=== PATIENT | male | born 1975 | race Caucasian/White ===

== ENCOUNTER → 2019-04-25 | Outpatient (CLI) | payer OTHER, SELFPAY ==
[2019-04-25 14:09] LABS: Hematocrit 46.2 % (40-54); Hemoglobin 16.1 g/dL (13.0-16.5); Mean Corp Hgb Conc 34.8 g/dL (32-36); Mean Corpuscular Hgb 32.8 pg (27.0-32.0); Mean Corpuscular Volume 94.1 fL (80-94); Mean Platelet Vol. 9.3 fl (6.2-12.0); Platelet Count 233 K/mm3 (150-450); RBC Distribution Width CV 11.5 % (11.6-14.6); RBC Distribution Width SD 40.1 fl (35.1-43.9); Red Blood Count 4.91 M/mm3 (4.6-6.2); White Blood Count 6.1 K/mm3 (4.4-11.0)
[2019-04-25 14:27] LABS: T4 Total, Thyroxin 11.3 ug/dL (4.5-12.1); Thyroid Stim Hormone (TSH) 2.57 uIU/mL (0.358-3.74)
== END | disposition home or self-care (01) ==
LOC: MFPLAB 11:51
PROVIDERS: Family Provider Family Medicine; PCP Family Medicine; Visit Provider Family Medicine
DX: E04.1 Nontoxic single thyroid nodule (principal)
CPT/HCPCS: 36415; 84436; 84443; 85027

== ENCOUNTER → 2019-04-27 | Outpatient (CLI) | payer OTHER, SELFPAY ==
--- NOTE | 2019-04-27 11:57 | US_ITS ---
STUDY: THYROID ULTRASOUND REASON FOR EXAM: Male, 44 years old. Palpable nodule TECHNIQUE: Ultrasound evaluation of the thyroid was performed with real-time and static rai-scale imaging. COMPARISON: None. FINDINGS: RIGHT LOBE: The right lobe of the thyroid gland measures 5.7 x 5.2 x 3.2 cm. There is a heterogeneous echotexture. There is a solid 5.1 x 5.0 x 3.0 cm heterogeneous vascular solid nodule. LEFT LOBE: The left lobe of the thyroid gland measures 4.5 x 1.5 x 1.5 cm. There is a heterogeneous echotexture. There are no demonstrated solid, cystic or complex lesions. ISTHMUS: The isthmus measures . The regional lymph nodes are normal. US/Thyroid IMPRESSION: Large solid vascular nodule in the right thyroid lobe measuring 5.1 x 5.0 x 3.0 cm occupying nearly the entire right thyroid lobe. Further evaluation with thyroid uptake study performed. If this nodule should demonstrate a suspicious uptake pattern, biopsy would be recommended. If not, six-month follow-up recommended to assure stability Electronically Signed: Dave Gonzales MD at 12:55 EDT , Service support ,
== END | disposition home or self-care (01) ==
PROVIDERS: Family Provider Family Medicine; PCP Family Medicine; Referring Provider Family Medicine; Visit Provider Family Medicine
DX: E04.1 Nontoxic single thyroid nodule (principal)
CPT/HCPCS: 76536

== ENCOUNTER → 2019-05-09 | Outpatient (CLI) | payer OTHER, SELFPAY ==
[2019-05-09 12:56] VITALS: BMI 30.1
--- NOTE | 2019-05-09 13:05 | ASPS_PTH ---
PATIENT: FALLON TIRADO LOC: [facility] U#:[id number] AGE/SX: 44/M ROOM: RE05/09/[address]: Dr. Igro Viera MD : 1975 BED: DIS: 05/09/2019 SPEC #: [id number] RECD: 05/09/19 16:02 STATUS: NEO ANKIT #: [id number] DONNA: 05/09/19 13:[address]: Igor Viera DEPT: CYTOLOGY RECD BY: Elvira Nevarez ENTERED: 05/10/19 09:51 SP TYPE: ASPIRATION OTHR DR: Dr. Skyler Bruce MD Tissues: Thyroid gland, NOS Procedures: Special Stain Group II Cytology Other HEADER OPERATION: Ultrasound guided fine needle aspiration, right thyroid PRE-OP DIAGNOSIS: Uninodular goiter E04.1 TISSUE SUBMITTED: Fine needle aspiration, right thyroid slides x12 DIAGNOSIS CYTOLOGY Right thyroid nodule, ultrasound-guided FNA (smears): Consistent with benign follicular nodule. Adequate for evaluation. See comment. SJ:rg 05/11/19 COMMENT Immediate cytologic evaluation to determine adequacy is not applicable. Correlation with clinical, radiologic findings and appropriate follow up are necessary. Case has been reviewed in consultation with Dr. Littlejohn who concurs with the above diagnosis. IDC:AM CYTOLOGY STUDY Slides are reviewed. CYTOLOGY GROSS Received are 12 smears labeled with the patient's name and designated per the requisition as FNA right thyroid. Submitted for staining. /CC:cc 05/10/19 TC:5 CPT: 05330
== END | disposition home or self-care (01) ==
LOC: LABSPEC 16:11
PROVIDERS: Family Provider Family Medicine; PCP Family Medicine; Referring Provider Surgery; Visit Provider Surgery
DX: E04.1 Nontoxic single thyroid nodule (principal)
CPT/HCPCS: 88161; 88313

== ENCOUNTER 2019-05-15 11:02 | Day surgery (SDC) | payer OTHER, SELFPAY ==
--- NOTE | 2019-05-03 03:18 | HP_ITS ---
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 Is patient in pain?: No Allergies No Known Allergies Allergy (Unverified 05/03/19 12:52) Medications NK 05/03/19 [History Confirmed 05/03/19] [facility] Medical History Multinodular goiter (Acute) Surgical History history removal needle from foot (Acute) Family History Father Colon cancer Social History (Updated 05/03/19 @ 15:18 by Igor Viera MD) Smoking Status: Never smoker alcohol intake: current substance use type: does not use HPI HPI HPI: FALLON TIRADO is a 44 M who presents to the office today for HPI HPI Surgical H&P: Yes HPI: FALLON TIRADO is a 44 M who presents to the office today for Evaluation of uninodular goiter. Patient had a recent thyroid ultrasound done at [facility] on 04/27/2019. This showed a 5.1 x 5.0 x 3.0 nodular mass in the right thyroid lobe. The left lobe showed no masses or solid lesions. Patient has not had any neck pain. He has not noticed any difficulty swallowing. He has no family history of thyroid issues. He himself is not on any thyroid medication. ROS General General: Yes fatigue; no weight change, appetite, colon cancer, breast cancer or weakness HEENT HEENT: Yes swollen glands; no difficulty swallowing, eye injury, eye surgery or hoarseness Endo Endocrine: Yes diabetes mellitus; no thyroid disease, thyroid cancer, Hair loss, heat intolerance or cold intolerance Skin Skin: No rash or changing moles Breast Breast: No left breast lump, right breast lump, nipple discharge, breast pain, abnormal mammogram, abnormal US or breast enlargement Musc Musculoskeletal: No back problems, arthritis, rheumatoid arthritis, gout or joint pain Cardio Cardiovascular: No murmur, pacemaker, heart disease, atrial fibrillation, high blood pressure, heart attack, heart stent, palpitations, shortness of breat with exertion or chest pain Psych Psychiatric: No depression, anxiety or hearing voices Resp Respiratory: No shortness of breath, No sleep apnea, No cough, No COPD, No asthma, No emphysema, No wheezing Gastro Gastrointestinal: No abdominal pain, No nausea or vomiting, No diarrhea, No constipation, No blood in stool, No acid reflux, No hemorrhoids, No ulcers, No gallbladder problem, No black,tarry stools Johnny Hematologic: No blood thinners, No blood disorders, No bleeding, No anemia, No blood clots Neuro Neurologic: No system reviewed and no additional complaints, except as docu, No as per HPI, No abnormal walking, No abnormal hearing, No abnormal movements, No abnormal speech, No behavioral changes, No burning sensations, No confusion, No seizure-like activity, No unsteadiness, No dizziness, No localized weakness, No frequent falls, No headache(s), No lack of coordination, No loss of vision, No memory loss, No numbness, No other visual disturbances, No radiating pain, No restless legs, No sensory deficit, No fainting, No tingling, No tremor(s), No weakness, No other Exam Const General: no acute distress, well developed, well hydrated Orientation: oriented to person, oriented to place, oriented to time [facility] Head: normocephalic, atraumatic Ears: external ears normal Mouth: moist mucous membranes Other: Thyroid Exam: Extremely enlarged right thyroid lobe. No hard nodules are palpated there is no lymphadenopathy felt. His thyroid is nontender. Eyes Sclera: sclerae normal Pupils: normal by confrontation Neck Neck: no lymphadenopathy noted Neck mass: No Thyroid: thyroid normal, symmetrical Chest Chest palpation & inspection: normal inspection of the chest Breast Palpation: No nipple discharge Resp Effort & Inspection: normal respiratory effort Auscultation: clear to auscultation bilaterally Percussion: percussion normal Cardio Rate: regular rate Rhythm: regular rhythm Heart Sounds: no murmurs GI Palpation: soft, no hepatosplenomegaly, no masses, nontender Rectal Exam: other Other: Rectal exam deferred. Extrem General: normal to inspection, no clubbing, cyanosis or edema Assessment & Plan Problems 1. Uninodular goiter E04.1 Plan My plan is to perform a fine-needle aspiration of the right-sided thyroid nodule. I am then going to get him scheduled for a right-sided thyroid lobectomy. Risk benefits to include bleeding infection possible injury to parathyroid glands or recurrent laryngeal nerve which could require further surgeries were discussed with patient in great detail. All questions asked were answered.I have counseled the patient as to the risks of the procedure, including but not limited to: infection, bleeding, injury to any blood vessels/nerves, injury to any bowel/bladder, injury to any intraabdominal organs such as the liver/spleen, perforation of the GI tract, intraabdominal abscess/bleeding, incisional hernias, injury to the common bile duct/biliary ducts, injury to the spermatic cord/vessels/testicles, recurrence of hernia(s), complications of anesthesia, etc. The patient verbalizes understanding. Coding Level of Care Code Off vis,new,level 3 Diagnoses Uninodular goiter E04.1 05/03/19 9529 <Electronically signed by Igor acuña MD> Date _ Igor Viera MD
[2019-05-03 12:51] VITALS: BMI 30.1
[2019-05-09 12:56] VITALS: BMI 30.1
--- NOTE | 2019-05-11 16:41 | EKG12_ITS ---
Test Reason : PRE OP Blood Pressure : / mmHG Vent. Rate : 091 BPM Atrial Rate : 091 BPM P-R Int : 142 ms QRS Dur : 082 ms QT Int : 344 ms P-R-T Axes : 051 020 022 degrees QTc Int : 423 ms Normal sinus rhythm Possible Left atrial enlargement Borderline ECG Confirmed by JOE MONTAGUE, BRITT ([id number]), movie editor SHYAM HINSON ([id number]) on 05/15/2019 11:07:06 AM Referred By: Igor Viera Confirmed By:BRITT DIAZ MD
[2019-05-15] VITALS (12 sets, daily range): BP systolic 119–132; BP diastolic 63–92; PULSE 80–99; RESP 14–18; TEMP 36.5–37.2; O2SAT 84–97; BMI 28.9; BMI 29.0
--- NOTE | 2019-05-15 | THYROID_PTH ---
PATIENT: FALLON TIRADO [place] [facility] [place][id number] AGE/SX: 44/M ROOM: RE05/15/[address]: Dr. Igor Viera MD : 1975 BED: DIS: 05/16/2019 SPEC #: [id number] RECD: 05/15/19 14:54 STATUS: NEO REJosi #: [id number] DONNA: 05/15/19 00:[address]: Igor Viera DEPT: SURGICAL PATHOLOGY RECD BY: Joyce Mondragon ENTERED: 05/15/19 15:20 SP TYPE: THYROID OTHR DR: Dr. Skyler Bruce MD Tissues: A - Thyroid gland, NOS B - Lymph node, NOS Procedures: Frozen Section (charge) Frozen Section Add'l ([facility]) Surgery Specimen Level IV Surgery Specimen Level V HEADER OPERATION: Thyroid lobectomy, isthmusectomy PRE-OP DIAGNOSIS: Uninodular goiter TISSUE SUBMITTED: A - right thyroid lobectomy, isthmus, B - Central compartment lymph node FROZEN SECTION DIAGNOSIS A. Right lobe of thyroid, lobectomy: Cellular follicular nodule. AM:panchito 05/15/19 Case has been reviewed in consultation with Dr. Oglesby who concurs with the above diagnosis. IDC:SJ MICROSCOPIC DIAGNOSIS A. Right lobe of thyroid, lobectomy: Consistent with follicular adenoma with colloid component. Chronic lymphocytic thyroiditis. B. Central compartment lymph node: Two out of two lymph nodes with no pathologic change. AM:panchito 05/17/19 COMMENT Reference is made to the patient's right thyroid fine needle aspiration from 05/11/19 ([id number]) in which changes consistent with benign follicular nodule is identified. Immunohistochemistry ([id number]) supports the above diagnosis. Case has been reviewed in consultation with Dr. Oglesby who concurs with the above diagnosis. IDC:SJ MICROSCOPIC DESCRIPTION Slides are reviewed. GROSS DESCRIPTION A - Received fresh for frozen section consultation labeled with the patient's name is a specimen designated right lobe of thyroid. The specimen consists of a lobe of thyroid measuring 6.5 x 4.5 x 3 cm and weighing 41 gm. The presumed isthmic margins are inked in yellow ink. The remainder of the specimen is inked in black ink. Serial sections reveal a firm, light farrell nodule measuring 4.5 x 4.5 x 3 cm. The nodule involves approximately 90% of the thyroid lobe. Beater And Pulper Feeder sections of this nodule is submitted for frozen section consultation in two blocks. Additional sections are submitted as follows: 3??isthmus with isthmic margin, 4-11 - additional sections of the nodule, 12 - uninvolved thyroid parenchyma. / AM:panchito 05/16/19 B - Received in fixative is one container labeled with the patient's name and designated central compartment lymph node. The specimen consists of an irregular fragment of light farrell soft tissue measuring 0.7 x 0.5 x 0.2 cm. The specimen is totally submitted in one cassette. / AM:panchito 05/16/19 TC:1 CPT:
--- NOTE | 2019-05-15 | IMM_PTH ---
PATIENT: FALLON TIRADO LOC: [facility] [place] U#:[id number] AGE/SX: 44/M ROOM: RE05/15/[address]: Dr. Igor Viera MD : 1975 BED: DIS: 05/16/2019 SPEC #: [id number] RECD: 05/21/19 12:45 STATUS: NEO REQ #: [id number] DONNA: 05/15/19 00:[address]: Igor Viera DEPT: IMMUNOHISTOCHEMISTRY RECD BY: Joyce Mondragon ENTERED: 05/21/19 12:47 SP TYPE: IMMUNO OTHR DR: Dr. Skyler Bruce MD Tissues: A - Thyroid gland, NOS Procedures: CK19 (add) GAL-3 (add) HBME (add) CD56 (initial) PHYSICIAN & INSTITUTION [facility] [id number] SPECIMEN INFORMATION: Tissue Source: A - Right lobe of thyroid, lobectomy Clinical Info: Uninodular goiter Specimen Number: [id number] A10 CPT code: 48770, 95855 x3 METHODOLOGY: Deparaffinized sections of prefer/formalin-fixed tissue or PAP/DQ stained slides are incubated with monoclonal/polyclonal antibodies/oligonucleotide probes. Localization is made via biotin free immunoperoxidase method. Appropriate controls are performed and reacted as expected. Results on target cell population are indicated in the following table: RESULTS: ANTIBODY / CLONE RESULT Block A10 CD56 (123C3.D5) positive HBME1 (HBME-1) negative CK19 (A53-B/A2.26) positive, focal GAL3 (9C4) negative These tests were developed and their performance characteristics determined by [facility]. They may not have been cleared or approved by the U.S. Food and Drug Administration. The FDA has determined that such clearance or approval is not necessary. The above immunohistochemical/dualISH markers are ordered and reviewed by the Pathologist. INTERPRETATION: A. Right lobe of thyroid, lobectomy: Consistent with benign follicular nodule/follicular adenoma. AM:panchito 05/22/19
[2019-05-15] MEDS: Lactated Ringers 1,000 ML 100 ML IV ×2 (12:05→20:07)
--- NOTE | 2019-05-15 12:21 | PCM.HP.BLA ---
History and Physical Date of Admission: 05/15/19 LIVE [facility] Office Visit Surgical Patient Name: FALLON TIRADO Date of : [birth year] Patient Status: Ambulatory Office Visit Attending Provider: Igor Viera Date: 05/09/19 12:55 Initialization Date: 05/09/19 12:55 Intake Vital Signs 05/09/19 Body Mass Index (BMI) 30.1 Intake Visit Reasons: FNA Right Thyroid Talent Acquisition Relationship Manager Required: No Is patient in pain?: No Allergies No Known Allergies Allergy (Verified 05/09/19 12:56) Medications NK 05/03/19 [History Confirmed 05/09/19] PFSH Medical History (Updated 05/09/19 @ 12:58 by Marita Underwood) Uninodular goiter (Acute) Surgical History history removal needle from foot (Acute) Family History Father Colon cancer Social History Smoking Status: Never smoker alcohol intake: current substance use type: does not use HPI HPI HPI: FALLON TIRADO, is a 44 M who presents to the office today for HPI HPI HPI: FALLON TIRADO is a 44 M who presents to the office today for ROS General General: Yes fatigue; no weight change, appetite, colon cancer, breast cancer or weakness HEENT HEENT: Yes swollen glands; no difficulty swallowing, eye injury, eye surgery or hoarseness Endo Endocrine: Yes diabetes mellitus; no thyroid disease, thyroid cancer, Hair loss, heat intolerance or cold intolerance Skin Skin: No rash or changing moles Breast Breast: No left breast lump, right breast lump, nipple discharge, breast pain, abnormal mammogram, abnormal US or breast enlargement Musc Musculoskeletal: No back problems, arthritis, rheumatoid arthritis, gout or joint pain Cardio Cardiovascular: No murmur, pacemaker, heart disease, atrial fibrillation, high blood pressure, heart attack, heart stent, palpitations, shortness of breat with exertion or chest pain Psych Psychiatric: No depression, anxiety or hearing voices Resp Respiratory: No shortness of breath, No sleep apnea, No cough, No COPD, No asthma, No emphysema, No wheezing Gastro Gastrointestinal: No abdominal pain, No nausea or vomiting, No diarrhea, No constipation, No blood in stool, No acid reflux, No hemorrhoids, No ulcers, No gallbladder problem, No black,tarry stools Johnny Hematologic: No blood thinners, No blood disorders, No bleeding, No anemia, No blood clots Neuro Neurologic: No weakness Exam Chest Breast Palpation: No nipple discharge Cardio Heart Sounds: no murmurs Office Procedures Fine Needle Aspiration Provider Documentation Details: Primitive diagnosis: Uninodular goiter Postoperative diagnosis: The same Procedure: Ultrasound-guided fine-needle aspiration of dominant right thyroid nodule Surgeon: Maximiliano Procedure: Ultrasound the right thyroid gland revealed a dominant nodule in question. I prepped the skin with alcohol. I injected 1% lidocaine plain. Under ultrasound guidance I did 3 passes with a 22-gauge needle. I plated these on glass slides sterile dressings were applied and the patient tolerated the procedure well. Alert Anand Alert Billing: Yes FNA 13438 Thyroid Procedure Time Out Time Out Informed consent given: Yes Consent signed: Yes Time out checklist: patient, procedure, site marked/identified, positioning of patient, supplies available, allergies confirmed, team agrees on procedure Time out staff in room: Yes Time out verified: Yes Time out date: 05/09/19 Time out time: 12:56 Assessment & Plan Orders Orders: Fine Needle Aspiration Today E04.1 Coding Level of Care Code Attention Anand Additional Codes FNA - Fine Needle Aspiration: 08299 Thyroid ([id number]) I have re-examined the patient. There are no clinical changes since date of exam.
[2019-05-15] MEDS: Cefazolin 2 GM in 0.9% Normal Saline 100 ML IV (13:56)
--- NOTE | 2019-05-15 14:04 | PCM.OPRPT ---
Problem List (1) Nontoxic single thyroid nodule Status: Acute Report of Operation Date of Procedure: 05/15/19 Pre-Operative Diagnosis: Uninodular goiter Post-Operative Diagnosis: Same Surgery/Procedure Performed:: Right-sided thyroid lobectomy and isthmusectomy Type of Anesthesia:: General Anesthesiologist: Alec Bashir Specimen's removed: Thyroid and isthmus Estimated Blood Loss (mL): < 25 cc Fluids Replaced: 1400 cc Description of Procedure: Patient was brought into the operating room placed in the supine position. Under general endotracheal intubation towel was placed underneath the shoulder blades and neck was extended sterilely prepped draped in usual fashion. Local was injected cervical incision was made subplatysmal flaps were created with use of electrocautery Gelpi retractor was placed inside the wound midline strap muscles were opened the posterior strap muscles were then transected giving me better access to this enlarged right thyroid lobe. I went inferiorly took down the inferior pole vessels first then took the middle thyroidal vein down with a harmonic dissector and finally went to the superior pole vessels and took these down with harmonic dissector I rotated the gland from lateral to medial standpoint identifying the superior and inferior parathyroid gland I took the gland off of Jean's ligaments I did not identify the recurrent laryngeal nerve I stayed superior to it and anterior to it. I took the rest of the gland off of the trachea with a harmonic dissector is taking down all the rest of Jean's ligaments and then finally transected the isthmus on the left side of the gland. I cleaned the right thyroid lobe off I did not see anything that look like parathyroid tissue and sent it to pathology for frozen section. I placed the piece of no into the thyroid bed for good hemostasis. Strap muscles were brought together with an 0 Vicryl. Midline strap muscles were then brought together with a 2-0 Vicryl. Subplatysmal flaps were brought together with 3-0 Vicryl in a running 4-0 Monocryl on the skin Dermabond was applied sterile dressings were applied and the patient tolerated the procedure well. Frozen section revealed - Admit VTE Documentation VTE Present on Admission: No VTE Mechan Device Prophylaxis: SCD's VTE Pharm Prophylaxis ordered?: No Reason prophylaxis not ordered:: Treatment Not Indicated
[2019-05-15] MEDS: BUPIVACAINE LIPOSOME/PF 20 ML VIAL OPERA.SITE (15:03)
[2019-05-15] MEDS: oxyCODONE 5 MG Tablet 10 MG PO (21:14)
[2019-05-16 03:15] VITALS: BP 105/58; PULSE 69; RESP 16; TEMP 36.8; O2SAT 94
[2019-05-16] MEDS: Lactated Ringers 1,000 ML 100 ML IV (04:43)
[2019-05-16] MEDS: oxyCODONE 5 MG Tablet 10 MG PO ×2 (04:48→09:55)
--- NOTE | 2019-05-16 08:22 | PCM.PN.SRG ---
Patient Problems: Active and Suspected Problems (Last Updated 05/09/19 @ 12:58 by Marita Underwood) Nontoxic single thyroid nodule (Acute) Subjective: Patient evaluated resting comfortably in bed. He denies incisional pain/discomfort. He denies nausea, vomiting. He notes hoarseness/sore throat. - Physical Exam Vitals/I&O's: Vital Signs Temp Pulse Resp BP Pulse Ox 98.2 F 69 16 105/58 L 94 05/16/19 03:15 05/16/19 03:15 05/16/19 03:15 05/16/19 03:15 05/16/19 03:15 Oxygen Flow Rate (L/min) 2 Oxygen Delivery Method Room Air Weight: 220 lb Body Mass Index (BMI) 29.0 Intake and Output for Last 24 Hours 05/14/19 05/15/19 05/16/19 23:59 23:59 23:59 Intake Total 1713.33 / 2063.33 1710 / 1710 Output Total 0 / 0 650 / 650 Balance 1713.33 / 2063.33 1060 / 1060 General: Alert, Oriented x3, Cooperative Neck: - - Anterior neck- incision c/d/i. No erythema or infection noted. Minimal amount of ecchymosis noted. Current Medications Hydromorphone HCl (Dilaudid Inj) 1 - 2 mg IV Q2H PRN PRN PRN Reason: Pain Score 6-10/10 Lactated Ringer's () 1,000 mls @ 100 mls/hr IV .Q10H AMOR Last Admin: 05/16/19 04:43 Dose: 100 mls/hr Documented by: Sodium Chloride () 250 mls @ 15 mls/hr IV .[id number] PRN PRN Reason: Saline Flush Ondansetron HCl (Zofran) 4 mg IV Q8H PRN PRN PRN Reason: Nausea Oxycodone HCl (Oxyir) 10 mg PO Q4H PRN PRN PRN Reason: Pain Score 6-10/10 Last Admin: 05/16/19 04:48 Dose: 10 mg Documented by: Sodium Chloride () 10 - 40 ml IV UD PRN PRN Reason: SALINE FLUSH Medical Necessity - Tobacco Use Smoking Status: Never smoker Tobacco Use: Non-smoker Assessment/Plan All Active Problems (Last Updated 05/09/19 @ 12:58 by Marita Underwood) Nontoxic single thyroid nodule (Acute) I am following this patient in conjunction with Dr. Viera S/p right thyroid lobectomy Ready for discharge Code Visit Inpatient E&M: 27445 Subs Hosp L1 - Post-op
[2019-05-16 08:53] VITALS: BP 115/80; PULSE 74; RESP 18; TEMP 36.6; O2SAT 92
--- NOTE | 2019-05-16 09:01 | DCINST_ITS ---
Discharge Diet: Light diet - advance as tolerated Discharge Activity: May Not Drive - 3 days May shower in (days): 1 Lifting Restrictions: 10 pounds Call your doctor if your incision/area has: Continuous Slow Oozing, Sudden Increased Bleeding, Increased Pain/ Swelling, Increased Redness, Foul Smelling Discharge, Swelling at the incision site Call your doctor if you observe: Fever of 101 or Higher, Numbness or Tingling Suture Line Care: Avoid Pulling/Pushing, Avoid Pinching/Bending Cleanse incision/area with: Soap & Water Additional Instructions: May use Tylenol or Ibuprofen for discomfort as needed Allergies/Adverse Reactions: Allergies No Known Allergies Allergy (Verified 05/15/19 11:57) Medications to take at Discharge NK 05/03/19 Primary Care Physician: Skyler Bruce MD [Primary Care Provider] - Test Results: Test results from this visit will be discussed in further detail at your follow- up appointment, if applicable. Please Follow Up With: Igor Viera MD - [phone] When: 7 days
[2019-05-16 10:02] VITALS: BP 115/80; PULSE 74; RESP 18; TEMP 36.6; O2SAT 92
== END 2019-05-16 10:03 | disposition home or self-care (01) ==
LOC: SDC 11:02 → AC 05-16 08:02 → MS3 05-16 08:02
PROVIDERS: Family Provider Family Medicine; PCP Family Medicine; Referring Provider Surgery; Visit Provider Surgery
PROC: (CPT 60220; principal; 2019-05-15 12:55)
DX: E06.3 Autoimmune thyroiditis (principal); E04.9 Nontoxic goiter, unspecified; E11.8 Type 2 diabetes mellitus with unspecified complications; K21.9 Gastro-esophageal reflux disease without esophagitis
CPT/HCPCS: 60220; 88305; 88307; 88331; 88332; 88341; 88342; 93005; 99251; J7120; G0463; J2405

== ENCOUNTER → 2019-09-27 11:12 | Outpatient (CLI) | payer OTHER, SELFPAY ==
[2019-06-01 15:50] VITALS: BMI 29.0
[2019-09-27 12:10] LABS: Thyroid Stim Hormone (TSH) 4.17 uIU/mL (0.358-3.74)
[2019-09-28 06:08] LABS: Thyroid Peroxidase AB 25 IU/mL (0-34)
== END ==
PROVIDERS: PCP Family Medicine; Referring Provider Internal Medicine Endocrinology, Diabetes & Metabolism; Visit Provider Internal Medicine Endocrinology, Diabetes & Metabolism
DX: E03.8 Other specified hypothyroidism (principal); E06.3 Autoimmune thyroiditis
CPT/HCPCS: 36415; 84439; 84443; 86376

== ENCOUNTER → 2020-04-09 08:39 | Outpatient (CLI) | payer OTHER, SELFPAY ==
[2019-06-01 15:50] VITALS: BMI 29.0
[2020-04-09 10:51] LABS: T4 Free Direct 0.96 ng/dL (0.76-1.46)
== END ==
PROVIDERS: PCP Family Medicine; Referring Provider Internal Medicine Endocrinology, Diabetes & Metabolism; Visit Provider Internal Medicine Endocrinology, Diabetes & Metabolism
DX: E89.0 Postprocedural hypothyroidism (principal)
CPT/HCPCS: 36415; 84439; 84443

== ENCOUNTER → 2020-05-30 15:11 | Outpatient (CLI) | payer OTHER, SELFPAY ==
[2019-06-01 15:50] VITALS: BMI 29.0
[2020-05-30 17:15] LABS: Thyroid Stim Hormone (TSH) 1.69 uIU/mL (0.358-3.74)
== END ==
PROVIDERS: PCP Family Medicine; Referring Provider Internal Medicine Endocrinology, Diabetes & Metabolism; Visit Provider Internal Medicine Endocrinology, Diabetes & Metabolism
DX: E03.8 Other specified hypothyroidism (principal); E06.3 Autoimmune thyroiditis
CPT/HCPCS: 36415; 84439; 84443

== ENCOUNTER 2021-07-01 15:38 | Outpatient (CLI) | payer OTHER, SELFPAY ==
[2021-07-01 16:04] LABS: Bacteria 0 SEEN /hpf (None Seen); Mucous, Urine 0 SEEN /hpf (<or=2+); Red Blood Cells-Urine 0 SEEN /hpf (0-5); Squamous Epithelial Cells - UA 0 SEEN /hpf (0-5); White Blood Cells 0 SEEN /hpf (0-5)
[2021-07-01 16:21] LABS: Color, Urine Yellow (Yellow); Glucose, Dipstick Normal (Normal); Ketone-Dipstick Negative (Negative); Leukocyte Esterase-Dipstick Negative /ul (Negative); Nitrite-Dipstick Negative (Negative); Occult Blood-Urine Negative /ul (Negative); Protein-Dipstick Negative (Negative); Specific Gravity, Urine 1.005 (1.002-1.030); Urine Bilirubin Dipstick Negative (Negative); Urine Clarity Clear (Clear); Urine Urobilinogen Normal (Normal)
== END 2021-07-01 23:59 | disposition short-term general hospital (02) ==
LOC: LABSPEC 15:39
PROVIDERS: PCP Family Medicine; Visit Provider Family Medicine
DX: R31.9 Hematuria, unspecified (principal)
CPT/HCPCS: 81001; 87086

== ENCOUNTER 2021-09-11 09:55 | Outpatient (CLI) | payer OTHER, SELFPAY ==
[2021-09-11 12:41] LABS: Vitamin D,25 Hydroxy 28.7 ng/mL
[2021-09-11 12:48] LABS: ALB/GLOB Ratio 1.1 RATIO (0.9-2.4); AST(SGOT) 21 U/L (15-37); Alanine Aminotransfer ALT/SGPT 38 U/L (16-61); Albumin, Serum 4.1 g/dL (3.2-5.0); Alkaline Phosphatase 76 U/L (45-117); BUN 17 mg/dL (7-18); BUN/Creat Ratio 19.4 RATIO (10-20); Calcium,Total 9.1 mg/dL (8.5-10.1); Chloride 103 mmol/L (98-107); Cholesterol 188 mg/dL (200); Creatinine, Serum 0.88 mg/dL (0.70-1.30); EST Glomerular Filtration Rate 99 mL/min (>60); Est Glom Filt Rate - Afr Amer 119 mL/min (>60); Globulin 3.7 g/dL (2.2-4.2); Glucose 102 mg/dL (74-106); Potassium 4.6 mmol/L (3.5-5.1); Protein, Total 7.8 g/dL (6.4-8.2); Sodium Level 137 mmol/L (136-145); Triglycerides 129 mg/dL
[2021-09-11 12:49] LABS: Anion Gap 2 (5-15); High Density Lipoprotein 46 mg/dL; T4 Free Direct 1.17 ng/dL (0.76-1.46); Thyroid Stim Hormone (TSH) 2.34 uIU/mL (0.358-3.74); Very Low Density Lipoprotein 26 mg/dL (5-40)
== END 2021-09-11 23:59 | disposition home or self-care (01) ==
LOC: BIMLAB 09:56
PROVIDERS: PCP Family Medicine; Referring Provider Internal Medicine Endocrinology, Diabetes & Metabolism; Visit Provider Internal Medicine Endocrinology, Diabetes & Metabolism
DX: E89.0 Postprocedural hypothyroidism (principal); R03.0 Elevated blood-pressure reading, without diagnosis of hypertension; E55.9 Vitamin D deficiency, unspecified
CPT/HCPCS: 36415; 80053; 80061; 82306; 84439; 84443

== ENCOUNTER 2022-08-23 09:19 | Day surgery (SDC) | payer OTHER, SELFPAY ==
--- NOTE | 2022-08-04 07:35 | EKG12_ITS ---
Test Reason : PRE OP Blood Pressure : / mmHG Vent. Rate : 073 BPM Atrial Rate : 073 BPM P-R Int : 140 ms QRS Dur : 078 ms QT Int : 370 ms P-R-T Axes : 020 043 045 degrees QTc Int : 407 ms Normal sinus rhythm Normal ECG Confirmed by JOE MONTAGUE, BRITT ([id number]), book or script editor KANDI KILPATRICK ([id number]) on 08/05/2022 11:47:37 AM Referred By: CARMELA Confirmed By:BRITT DIAZ MD
[2022-08-04 09:40] LABS: Thyroid Stim Hormone (TSH) 2.96 uIU/mL (0.358-3.74)
[2022-08-23] VITALS (7 sets, daily range): BP systolic 118–156; BP diastolic 68–87; PULSE 77–99; RESP 14–16; TEMP 36.2–36.6; O2SAT 90–98; BMI 29.9
[2022-08-23] MEDS: Lactated Ringers 1,000 ML 15 ML IV (09:35)
[2022-08-23] MEDS: Cefazolin 2 GM in 0.9% Normal Saline 100 ML IV (10:46)
--- NOTE | 2022-08-23 10:55 | PCM.HP.BLA ---
History and Physical Date of Admission: 08/23/22 Date of Service:? 06/25/22 MR#: [id number] Acct: [id number] Name:FALLON CORRAL Rep #: [id number] : 1975 ? ? Provider: Dr. Kevon Panchal MD Age/Sex:? 47/M ? ? Location: [facility] Status: Signed Intake Vital Signs ? 06/25/2208:42 Height 6 ft 1 in Weight: 234 lb BMI 30.9 BP 138/91 H Blood Pressure Location Rt brachial Position Sitting Respiration 18 Pulse 80 Pulse Source Monitor Temp 97.7 F L Temp Source Temporal Pulse Oximetry (%) 94 Oxygen Delivery Method room air Intake Visit Reasons:?UNILATERAL INGUINAL HERNIA Chief Complaint: Inguinal hernia consult Assistant Hall Director Required: No Is patient in pain?: No Allergies No Known Allergies Allergy (Verified 06/25/22 08:43) Medications levothyroxine 88 mcg tablet 88 mcg PO DAILY #90 tabs 10/20/21 [Rx Confirmed 06/25/22] PFSH Medical History? Elevated blood pressure reading Postoperative hypothyroidism Uninodular goiter Surgical History? History of thyroidectomy (~04/2019) history removal needle from foot Family History? Grandfather Colon cancer Social History? Smoking Status:? Never smoker alcohol intake:? current substance use type:? does not use HPI HPI HPI: Patient is a 47-year-old male who presents for complaint of a new right groin bulge and probable right inguinal hernia.? He is referred from Dr. Segovia for further evaluation.? This finding was first noticed by patient approximately 3 months ago.? Patient recalls violently sneezing and feeling a pop.? He denies any significant pain with this finding, but states he finds it annoying and there is some discomfort with activity.? By annoying he reports that there is a full feeling.? He states there is an associated bulge that returned spontaneously when flying flat or sitting.? He denies any change to his bowel movements.? He denies any unexplained nausea or vomiting.? He denies any protrusion of his hernia and failure to reduce. Patient has no personal history of recurrent cutaneous infections including staph or blood sugar control problems.? Pertinent surgical history includes: Noncontributory (patient's only past surgical history is a thyroid lobectomy). In discussing patient's bowel movements I raised the issue of a screening colonoscopy.? Patient states that he has thought about this but not yet committed.? He denies any recent observation of bleeding or constipation.? He states that he may be interested in the near future. ROS General General: No weight change, appetite, fatigue, colon cancer, breast cancer or weakness HEENT HEENT: No difficulty swallowing, eye injury, eye surgery, swollen glands or hoarseness Endo Endocrine: Yes thyroid disease; No diabetes mellitus, thyroid cancer, Hair loss, heat intolerance or cold intolerance Skin Skin: No rash or changing moles Breast Breast: No left breast lump, right breast lump, nipple discharge, breast pain, abnormal mammogram, abnormal US or breast enlargement Musc Musculoskeletal: No back problems, arthritis, rheumatoid arthritis, gout or joint pain Cardio Cardiovascular: No murmur, pacemaker, heart disease, atrial fibrillation, high blood pressure, heart attack, heart stent, palpitations, shortness of breat with exertion or chest pain Psych Psychiatric: No depression, anxiety or hearing voices Resp Respiratory: No shortness of breath, No sleep apnea, No cough, No COPD, No asthma, No emphysema and No wheezing Gastro Gastrointestinal: No abdominal pain, No nausea or vomiting, No diarrhea, No constipation, No blood in stool, No acid reflux, No hemorrhoids, No ulcers, No gallbladder problem and No black,tarry stools Johnny Hematologic: No blood thinners, No blood disorders, No bleeding, No anemia and No blood clots Neuro Neurologic: No system reviewed and no additional complaints, except as documented, No as per HPI, No abnormal gait, No abnormal hearing, No abnormal movements, No abnormal speech, No behavioral changes, No burning sensations, No confusion, No convulsions, No disequilibrium, No dizziness, No localized weakness, No frequent falls, No headache(s), No lack of coordination, No loss of vision, No memory loss, No numbness, No other visual disturbances, No radicular pain, No restless legs, No sensory deficit, No syncope, No tingling, No tremor(s), No weakness and No other Exam Const General: cooperative, healthy appearing and no acute distress Orientation: alert, awake and oriented x3 Resp Effort & Inspection: normal respiratory effort Auscultation: no rales, no rhonchi and no wheezes Cardio Rate: regular rate Rhythm: regular rhythm Heart Sounds: S1 normal and S2 normal GI Other: Nondistended, no scars, no visible herniation, soft and nontender to palpation x4 quadrants Other: Bilateral testicles are palpated within the scrotum.? I feel a small indirect defect on the patient's left and there is tenderness with exam.? I feel a larger right-sided indirect defect with hernia contents pushing against me on Valsalva and more tenderness with exam. Assessment and Plan Assessment and Plan (1) Right inguinal hernia: ?Status:?Acute ?Comment: This is a 47-year-old, otherwise healthy, male who presents for recently diagnosed right inguinal hernia.? Hernia appears to have been precipitated by a violent fit of sneezing.? Patient is largely asymptomatic, but does find some discomfort with certain movements.? Hernia has always been reducible.? On exam I do palpate a right indirect defect as well as a probable left indirect defect.? I have discussed with Mr. Holly the development of hernias and the treatment options of watchful waiting versus operative intervention.? I have discussed that either is a viable choice in his case and that based on literature?particularly [facility] study from the early watchful waiting was shown to be safe with an event rate of 1 per thousand patient years.? I also shared with him, however, that during a follow-up observation.? The majority (approximately 70%) of patients elected for surgery due to development of more pain with the hernias.? It is therefore my recommendation that we proceed for hernia repair.? Given the probable left-sided defect as well, I recommend a minimally invasive approach with a robot-assisted mesh repair.? This would give us the opportunity to repair both hernias at 1 operation.? I have shared with him the postoperative expectations for activity restrictions.? 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 He confirms, however, that he should be able to arrange for necessary light duty to meet these restrictions.? At this time he has not completely decided on which way he would like to go, but pledges to get back to us with his final decision. ?Plan: Patient to notify us of his treatment decision regarding right possible left inguinal hernia.? Recommending minimally invasive, robot-assisted right possible left hernia repair with mesh. (2) Family history of colon cancer: ?Status:?Acute ?Comment: In addition to above, patient has not undergone screening colonoscopy.? He does have a history of colon cancer in his grandfather.? He currently denies any issues with his bowels specifically constipation, diarrhea, or any observation of blood.? He states that he will consider my offer for a screening colonoscopy.? We did discuss that he would require a preprocedure bowel prep as well as the expectation for arranging a designated garbage collector driver the day of the procedure given the use of procedural sedation.? He states that he will let me know once he is decided for this procedure.? We were careful to clarify that this procedure would have to be done separate from the above proposed inguinal hernia repair(s) ?Plan: Patient to return a decision as to whether or not he is ready to proceed with screening colonoscopy. I have examined the patient and the H&P has been reviewed. There are no clinical changes since date of exam. Patient's initial operative date was postponed on the account of a positive MRSA PCR. Patient confirms that he completed the eradication protocol and denies any further health updates. He states that he has had continued mild discomfort from his right groin. Procedure and post procedure expectations were reviewed with patient and his spouse. They offer no further questions so we will proceed to the operating room for planned robot-assisted right inguinal hernia repair (possible left) with mesh
[2022-08-23] MEDS: Bupiv/Epi 0.25% 30 ML Vial (14:15)
--- NOTE | 2022-08-23 14:19 | PCM.OPRPT ---
Report of Operation Date of Procedure: 08/23/22 Pre-Operative Diagnosis: Right inguinal hernia Post-Operative Diagnosis: 1. Right indirect inguinal hernia 2. Left direct inguinal hernia Surgery/Procedure Performed:: Robot-assisted repair of bilateral inguinal hernias with mesh Description of Surgical Findings:: ? Indirect right inguinal hernia with small amount of fat in the direct space ? Direct left inguinal hernia Surgeon: Kevon Panchal paper products inspector: Dylan Dunn paper products inspector: Patsy Swenson Type of Anesthesia: General/Supplemental Anesthesiologist: yakelin Specimen's removed: NA Drains: N/A Estimated Blood Loss (mL): 15 Description of Procedure: After appropriate identification in the preoperative holding area the patient was brought to the operating room where he was positioned supine on the operating table. Preoperative antibiotics were completed and the patient was administered a general anesthetic. Patient's abdomen was then prepped and draped in usual sterile fashion. A formal timeout followed to confirm patient and procedure. Procedure was begun with an optical entry facilitated by Veress insufflation at Salas's point. Once pneumoperitoneum reached a set point pressure of 12 mmHg a right paramedian incision was made and a 8 mm robotic trocar was placed with a careful Optiview technique. Follow-up laparoscopic investigation revealed no inadvertent injury to the viscera below from either this port placement or our Veress needle insertion. A second port was placed a hand's breath right of this index port under laparoscopic visualization. Then the Veress needle was withdrawn and a third and final robotic port was placed through this site. Patient was positioned in slight Trendelenburg and I performed a local block of the ilioinguinal nerves bilaterally (after observing bilateral inguinal hernia defect) using 20mL local anesthetic under laparoscopic visualization. The robot was docked in standard fashion. In this positioning I could visualize a sizable indirect defect initially containing small bowel (that spontaneously reduced back to the abdomen with further Trendelenburg) and a probable left direct inguinal hernia defect behind some adherent sigmoid colon along the left anterior pelvis. Robotically, a peritoneal flap was created on the right extending from the medial umbilical ligament to the level of the ASIS (external) and was bluntly dissected to expose the medial parietal compartment and lateral visceral compartments. Medially I could visualize the pubic tubercle and David's ligament while laterally I extended the dissection down to the level of the ASIS. The hernia sac was identified and from the cord structures deeply with selective use of monopolar energy. Once the hernia sac was fully dissected off the cord structures, I did not visualize a cord lipoma, but I did identify some fat and a slight indentation of a direct defect. This fatty tissue easily dissected back from the abdominal wall with blunt dissection. The peritoneal flap was inspected to ensure that cord was appropriately parietalized and there was no pulling of the cord structures or the viscera deeply over the psoas using the pull test. Then attention was turned to the patient's left side where there was evidence of the probable direct defect. To try to better visualize this defect, I robotically lysed several adhesions between the epiploic fat of the sigmoid colon and the peritoneum over left anterior pelvis. Once I was convinced of this defect, a peritoneal flap was created on this side and dissection was carried down in similar fashion to David's ligament medially (this dissection joined the dissection from the right to 1 common space within the space of Retzius) and laterally over the psoas at the same depth. Here there was an obvious direct defect containing fat. Manual traction was applied to fat and selective electrocautery was used to separate it from the abdominal wall. There was no evidence of an indirect defect, but separation of the peritoneum from the spermatic cord structures was technically challenging secondary to a peritoneal rent I created inadvertently by trying to better expose the defect with the adherent sigmoid colon. Ultimately, I was able to visualize the peritoneum separate from the cord structures and developed the inferior edge of this rent. Again, I performed the pull test to ensure that there was no tenting of structures that may compromise the future mesh lie. Once satisfied, 2X Bard 3D max, size large, mid meshes were placed into the abdomen along with suture. Each mesh was positioned within the respective preperitoneal pocket so that there was good medial and inferior overlap of the myopectineal orifice. The overlap of the meshes was ensured by sewing them together at the adminiculum of the linea alba just superior to the pubic tubercle with 3-0 Vicryl. On the right side I also tacked the mesh to David's ligament more inferiorly. For both the right and left sides laterally the mesh was tacked to the abdominal wall in a partial-thickness bite using a 3-0 Vicryl suture. The peritoneal flap was then closed on the right with a running 3-0 V-Loc suture taking care to conceal the barbs of the suture beneath the peritoneum. Once the flap closure was complete, I undertook repair of a small peritoneal defect with 3-0 Vicryl. I then transitioned to the left side and closed the preperitoneal pocket with a second 3 oh V-Loc suture. There was no curling or folding of the mesh. To address the larger peritoneal defect on this side I performed a wide [id number] closure of most of the peritoneum with 3-0 V-Loc suture. I then tacked an elongated epiploic appendage from the sigmoid colon over the peritoneum using a single interrupted 3-0 Vicryl to effectively interpose this fat between the peritoneum and the colon. With the peritoneal defects closed, sutures were systematically removed from the peritoneum and the pneumoperitoneum was evacuated before removing the trocars. The port sites were closed at the skin with running 4-0 Monocryl in a subcuticular fashion. Steri-Strips and OpSite's were used as dressings. Patient's testicles were verified within the scrotum. Patient was then awoken from anesthetic and transferred to PACU for ongoing recovery. Right: 3D max mid anatomical mesh Lot number: [id number], reference: [id number] Left: 3D max mid anatomical mesh lot number [id number], reference: [id number] Complications None Admit VTE Documentation VTE Mechan Device Prophylaxis: SCD's Procedures Digestive 40xxx-49xxx: 75596-17 Lap ing hernia repair init
--- NOTE | 2022-08-23 14:26 | DCINST_ITS ---
Discharge Instructions Diet Discharge Diet: No restrictions Activity Discharge Activity: May Not Drive (While taking narcotic pain medication) and May Shower May shower in (days): 2 Ice area for (Minutes): 20 Lifting Restrictions: No lifting greater than 10 pounds for the next 5 weeks Dressing / Incision Call your doctor if your incision/area has: Continuous Slow Oozing, Increased Pain/ Swelling, Increased Redness, Foul Smelling Discharge and Swelling at the incision site Call your doctor if you observe: Fever of 101 or Higher Change Dressing in: 2 days (Please leave Steri-Strips intact until they fall off spontaneously or are taken off at your follow-up visit) Remove Dressing in: 2 days (Please leave Steri-Strips intact until they fall off spontaneously or are taken off at your follow-up visit) Cleanse incision/area with: Soap & Water and Keep Dressing Clean & Dry Follow Up Care Please Follow Up With: Kevon Panchal MD When: 1 week postop Test Results: Test results from this visit will be discussed in further detail at your follow- up appointment, if applicable. Discharge Plan Admission Primary Reason for Your Visit: Repair of inguinal hernias Attending Provider: Kevon Panchal Primary Care Provider: Joanie Segovia Discharge Orders/Prescriptions Prescriptions: New oxycodone 5 mg tablet 5 mg PO Q6H PRN (Reason: pain) 3 Days Qty: 10 0RF No Action cholecalciferol (vitamin D3) [Vitamin D3] 25 mcg (1,000 unit) Tablet 25 mcg PO DAILY levothyroxine 88 mcg tablet 88 mcg PO DAILY Qty: 90 3RF Referrals / Follow Up: Joanie Segovia MD [Primary Care Provider] - Disposition Disposition (needs filled in before D/C Order can be placed): Home, Self Care
[2022-08-23] MEDS: Sugammadex Sodium 200 MG/2 ML VIAL IV (14:29)
== END 2022-08-23 16:20 | disposition home or self-care (01) ==
LOC: SDC 09:21 → AC 09:22
PROVIDERS: Anesthesiology; PCP Family Medicine; Referring Provider Surgery; Visit Provider Surgery
PROC: (CPT 49650; principal; 2022-08-23 10:45)
DX: K40.90 Unilateral inguinal hernia, without obstruction or gangrene, not specified as recurrent (principal); E07.9 Disorder of thyroid, unspecified; Z80.0 Family history of malignant neoplasm of digestive organs; Z79.899 Other long term (current) drug therapy
CPT/HCPCS: 49650; S2900; 00840; 36415; 84443; 87077; 87081; 93005; J7120; J2405

== ENCOUNTER 2023-02-03 07:26 | Day surgery (SDC) | payer OTHER, SELFPAY ==
[2023-02-03] VITALS (7 sets, daily range): BP systolic 97–134; BP diastolic 79–92; PULSE 70–86; RESP 14–16; TEMP 36.2–36.4; O2SAT 94–97; BMI 29.3
[2023-02-03] MEDS: Lactated Ringers 1,000 ML 15 ML IV (07:49)
--- NOTE | 2023-02-03 08:30 | IMM_PTH ---
PATIENT: FALLON TIRADO LOC: EN U#:[id number] AGE/SX: 48/M ROOM: RE02/03/[address]: Dr. Kevon Panchal MD : 1975 BED: DIS: 02/03/2023 SPEC #: [id number] RECD: 02/03/23 13:07 STATUS: NEO REJosi #: [id number] DONNA: 02/03/23 08:[address]: Kevon Panchal DEPT: IMMUNOHISTOCHEMISTRY RECD BY: Joyce Mondragon ENTERED: 02/03/23 13:08 SP TYPE: IMMUNO OTHR DR: Dr. Joanie Segovia MD Tissues: A - Stomach, NOS Procedures: H Pylori (initial) PHYSICIAN & INSTITUTION [place] [id number] SPECIMEN INFORMATION: Tissue Source: A - Gastric antrum Clinical Info: Screening, heartburn Specimen Number: [id number] CPT code: 51813 METHODOLOGY: Deparaffinized sections of prefer/formalin-fixed tissue or PAP/DQ stained slides are incubated with monoclonal/polyclonal antibodies/oligonucleotide probes. Localization is made via biotin free immunoperoxidase method. Appropriate controls are performed and reacted as expected. Results on target cell population are indicated in the following table: RESULTS: ANTIBODY / CLONE RESULT Block A H Pylori (polyclonal) negative These tests were developed and their performance characteristics determined by [facility]. They may not have been cleared or approved by the U.S. Food and Drug Administration. The FDA has determined that such clearance or approval is not necessary. The above immunohistochemical/dualISH markers are ordered and reviewed by the Pathologist. INTERPRETATION: A. Gastric antrum, biopsy: Negative for Helicobacter pylori organisms. MADI:panchito 02/04/2023
--- NOTE | 2023-02-03 08:30 | EGD_PTH ---
PATIENT: FALLON TIRADO LOC: EN U#:[id number] AGE/SX: 48/M ROOM: RE02/03/[address]: Dr. Kevon Panchal MD : 1975 BED: DIS: 02/03/2023 SPEC #: [id number] RECD: 02/03/23 11:34 STATUS: NEO ANKIT #: [id number] DONNA: 02/03/23 08:[address]: Kevon Panchal DEPT: SURGICAL PATHOLOGY RECD BY: Mel Whitehead ENTERED: 02/03/23 12:07 SP TYPE: EGD BIOPSY OTHR DR: Dr. Joanie Segovia MD Tissues: A - Gastric mucous membrane B - Pylorus C - Gastric mucous membrane D - Gastric mucous membrane E - Esophagus, NOS F - Stomach, NOS G - Esophagus, NOS H - Esophagus, NOS I - Sigmoid colon biopsy Procedures: Special Stain Group II Surgery Specimen Level IV Alcian Blue/PAS (control) HEADER OPERATION: Colonoscopy with biopsy, EGD with polypectomy and biopsy PRE-OP DIAGNOSIS: Screening and heartburn TISSUE SUBMITTED: A - Gastric antrum biopsy for H. pylori and path, B - Prepyloric nodule biopsy, C - Antral nodule biopsy, D - Gastric body greater curvature polyps biopsy, E - Gastroesophageal junction biopsy, F - Stomach cardia polyp, G - Mid esophageal plaque, H - Mid esophageal polyp, I - Proximal sigmoid polyp biopsy MICROSCOPIC DIAGNOSIS A. Gastric antrum, biopsy: Mild gastritis. See microscopic description and comment. B. Prepyloric nodule, biopsy: Mild gastritis. See microscopic description and comment. C. Antral nodule, biopsy: Mild gastritis. See microscopic description and comment. D. Gastric body greater curvature polyps, biopsy: Consistent with fragments of fundic gland polyp. E. Gastroesophageal junction, biopsy: Fragments of gastroesophageal mucosa with chronic inflammation and changes consistent with gastroesophageal reflux disease. Intestinal metaplasia (goblet cell metaplasia) not identified. See comment. F. Stomach cardia polyp, biopsy: Fundic gland polyp. G. Mid esophageal plaque, biopsy: A fragment of squamous epithelium with changes suggestive of squamous papilloma. H. Mid esophageal polyp, biopsy: A fragment of squamous epithelium with changes suggestive of squamous papilloma. I. Proximal sigmoid polyp, biopsy: Fragments of tubular adenoma. SJ:panchiot 02/04/2023 COMMENT A. The results of immunohistochemistry for Helicobacter pylori will be reported separately ([id number]). B, C & E. Alcian blue/PAS stain with matched control is used in the evaluation of the specimen. MICROSCOPIC DESCRIPTION Slides are reviewed. A. The specimen shows fragments of gastric mucosa with chronic inflammatory cell infiltrates in the lamina propria consisting of lymphocytes and plasma cells, consistent with mild chronic gastritis. B & C. The specimen shows fragments of gastric mucosa with chronic inflammatory cell infiltrates in the lamina propria consisting of lymphocytes and plasma cells, consistent with mild chronic gastritis. Focal intestinal metaplasia (goblet cell metaplasia) is also noted. GROSS DESCRIPTION A - Received in fixative is one container labeled with the patient's name and designated gastric antrum. The specimen consists of two irregular fragments of light farrell soft tissue that in aggregate measure 0.8 x 0.4 x 0.1 cm. The specimen is totally submitted in one cassette. B - Received in fixative is one container labeled with the patient's name and designated prepyloric nodule biopsy. The specimen consists of multiple irregular fragments of light farrell soft tissue that in aggregate measure 1.0 x 0.5 x 0.1 cm. The specimen is totally submitted in one cassette. C - Received in fixative is one container labeled with the patient's name and designated antral nodule biopsy. The specimen consists of multiple irregular fragments of light farrell soft tissue that in aggregate measure 1.0 x 0.6 x 0.1 cm. The specimen is totally submitted in one cassette. D - Received in fixative is one container labeled with the patient's name and designated gastric body curvature polyp biopsy. The specimen consists of multiple irregular fragments of light farrell soft tissue that in aggregate measure 2.0 x 0.5 x 0.1 cm. The specimen is totally submitted in one cassette. E - Received in fixative is one container labeled with the patient's name and designated GE junction biopsy. The specimen consists of multiple irregular fragments of light farrell soft tissue that in aggregate measure 0.6 x 0.6 x 0.1 cm. The specimen is totally submitted in one cassette. F - Received in fixative is one container labeled with the patient's name and designated stomach cardia polyp. The specimen consists of a farrell-pink polyp measuring 0.5 x 0.5 x 0.3 cm. The specimen is totally submitted in one cassette. G - Received in fixative is one container labeled with the patient's name and designated mid esophageal plaque. The specimen consists of one irregular fragment of light farrell soft tissue that measures 0.5 x 0.4 x 0.1 cm. The specimen is totally submitted in one cassette. H - Received in fixative is one container labeled with the patient's name and designated mid esophageal polyp. The specimen consists of one irregular fragment of light farrell soft tissue that measures 0.6 x 0.4 x 0.1 cm. The specimen is totally submitted in one cassette. I - Received in fixative is one container labeled with the patient's name and designated proximal sigmoid polyp biopsy. The specimen consists of multiple irregular fragments of light farrell soft tissue that in aggregate measure 0.6 x 0.3 x 0.1 cm. Multiple fragments of fecal material are also noted. The specimen is totally submitted in one cassette. / SJ:rg 02/03/2023 TC:1 CPT: 80522 x9, 48833 x3
--- NOTE | 2023-02-03 08:36 | HP.PCM_ITS ---
History and Physical Date of Admission: 02/03/23 Date of Service: 09/20/22 MR#: [id number] Acct: [id number] Name: FALLON HOLLY Rep #: [id number] : 1975 Provider: Dr. Kevon Panchal MD Age/Sex: 47/M Location: [facility] Status: Signed Intake Vital Signs 08/23/2308:44 Height 6 ft 1 in Intake Visit Reasons: Hernia 08/23 Chief Complaint: Hypothyroidism Allergies No Known Allergies Allergy (Verified 09/20/22 09:08) Medications cholecalciferol (vitamin D3) 25 mcg (1,000 unit) tablet (Vitamin D3) 25 mcg PO DAILY 08/02/22 [History Confirmed 09/20/22] levothyroxine 88 mcg tablet 88 mcg PO DAILY #90 tabs 09/09/22 [Rx Confirmed 09/20/22] [facility] Medical History Alcohol use Back pain Elevated blood pressure reading Gastric reflux Leg cramps Non-smoker Postoperative hypothyroidism Pre-op testing Thyroid disease Uninodular goiter Surgical History History of thyroidectomy (~04/2019) history removal needle from foot Family History Grandfather Colon cancer Social History Smoking Status: Never smoker alcohol intake: current substance use type: does not use HPI HPI HPI: Patient presents for his second postoperative visit following robot-assisted bilateral inguinal hernia repair 08/23/2022 as well as to discuss possible screening colonoscopy. Mr. Holly states that he is still noticing some very mild swelling, but has experienced significant improvements and is now wearing his jeans comfortably. He denies any other wound concerns. He confirms that he is lifting minimally and smartly. Patient is a 47-year-old male who presents for need to schedule screening colonoscopy secondary to age and family history. Patient has not had prior colonoscopy. Patient has no personal history of colon cancer, inflammatory suman wel disease, or diverticulitis. They describe their bowel habits as normal. They have at least 1 bowel movement per day and spend roughly 10 minutes on the toilet without significant straining. They have not noticed recent bleeding or dark stools. They do not regularly take fiber supplements. Patient has a family history of colon cancer in his paternal grandfather. He states that his grandfather was diagnosed approximately age 72 and ultimately succumbed to this diagnosis. There is no other significant family history for GI related diagnoses. The patient's weight is up approximately 5 pounds over the past 2 years. The patient is not prescribed anticoagulants/blood thinners. Relevant prior abdominal surgical history includes: None Patient does have a significant history of heartburn. He estimates that he experiences symptoms up to 3 times per week. He states that he has had a difficult time putting his finger on the causative stimuli. He notes some triggers to be cereal and marinara sauces. He reports that reflux symptoms occur seldom. He confesses to eating later at night and going to bed many times not even an hour later. He states he previously tried omeprazole, but states that he did not necessarily like this medication because he found himself eating more since he was not having heartburn. He then provided me with history that his heartburn asked to provide a check on his overindulgence. Below is recapitulated from patient's prior postoperative visit for ease of review: Patient presents following robot-assisted bilateral inguinal hernia on 08/23/2022.? Since hospital discharge they have been doing well.? They report minimal postoperative pain and their only concern is for some inguinal swelling which makes their jeans feel tight.? They report use of only Advil once a day at this point.? They have no wound concerns.? Bowel and bladder function are at baseline and patient denies any difficulties with constipation.? They confirm that they remain committed to lifting restrictions. Exam Const General: cooperative, comfortable and no acute distress Orientation: alert, awake and oriented x3 Resp Effort & Inspection: normal respiratory effort GI Other: Nondistended, well-healed port sites with slight ridging of the soft tissue deeply. Soft and nontender to palpation x4 quadrants. Other: Patient has no bulging or tenderness over bilateral groins Assessment and Plan Assessment and Plan (1) S/P bilateral inguinal hernia repair: Status: Acute Comment: Patient presents for his second postoperative visit following robot-assisted bilateral inguinal hernia repair on 08/23/2022. He has continued to do very well in his postoperative recovery and has noted further improvements in his postoperative swelling. There are no wound concerns on exam. We discussed gradually resuming activity in the next couple of weeks. Plan: ? Okay to resume activity at the completion of his 5 weeks of lifting rest rictions roughly 09/27/2022 (2) Family history of colon cancer: Status: Acute Comment: Patient with family history of colon cancer in paternal grandfather diagnosed at age 72. This would seem to confirm minimal genetic risk if any. Still, given patient's age, recommend proceeding with screening colonoscopy. (3) Screening for colon cancer: Status: Acute Comment: This is a 47-year-old male with no current concerns regarding his bowel movements, but a family history in a older paternal grandfather. Given patient's age, I have recommended we proceed with screening colonoscopy. Since he denies any significant issues with constipation, will prescribe a standard split prep and have advised him to refrain from any significant fiber intake in the days leading up to his procedure. Plan: Plan will be to complete colonoscopy on first mutually agreeable date under local MAC. Pre-procedure prep discussed and paper instructions provided. Patient is also made aware that he will need to have a operator and truck driver with him the day of the procedure. (4) Heartburn symptom: Status: Chronic Comment: Patient with heartburn symptoms multiple times per week. Previously trialed PPI, and apparently had some relief, but has gone off this medication. No history of prior investigative EGD. I did discuss possible causes for patient's symptoms and recommended pursuing an EGD at the same time as his planned screening colonoscopy. Additionally, we discussed some lifestyle changes (including spacing mealtime from lying flat) that Mr. Holly can make in the meantime to mitigate his risk for symptoms. Plan: ? EGD concurrent with colonoscopy above ? Patient encouraged to avoid lying flat for 3 hours following mealtime. He is also advised to avoid typical food triggers including marinara sauces, exceptional caffeine or alcohol intake, etc. I have examined the patient and the H&P has been reviewed. There are no clinical changes since date of exam. Mr. Yao reports that his symptoms remain about the same with actually somewhat decreased frequency of heartburn this week. He states that he has had some success with propping his head up and trying to space dinnertime from bedtime. He otherwise denies any health updates. He confirms that he completed his prep in anticipation of today's procedure. Will therefore proceed with scheduled EGD and screening colonoscopy as discussed above.
--- NOTE | 2023-02-03 10:08 | OP.CCLET_ITS ---
02/03/2023 Joanie Segovia [address] [place] [address] Re : Upper GI endoscopy procedure for Tomas Holly Dear Dr. Segovia This procedure was performed on January. My impressions and recommendations are as follows: Impressions : - Normal duodenal bulb, first portion of the duodenum and second portion of the duodenum. No specimens collected. - Erythematous mucosa in the antrum. Biopsied. - Two mucosal papules (nodules) found in the stomach. Biopsied. - Two mucosal papules (nodules) found in the stomach. Biopsied. - Multiple gastric polyps. Biopsied. - Z-line irregular, 41 cm from the incisors. Biopsied. - A single gastric polyp. Resected and retrieved. - Multiple plaques in the middle third of the esophagus. Biopsied. - Mucosal nodule found in the esophagus. Biopsied. - Medium-sized hiatal hernia. No specimens collected. Recommendations : - Discharge patient to home (via wheelchair). - Resume previous diet today. - Use Protonix (pantoprazole) 40 mg PO BID today. - Await pathology results. - Telephone my office for pathology results in 1 week. - Continue present medications. My findings are described in the full procedure note, which is enclosed. If I can be of further assistance, please feel free to contact me at Doctor phone number(s): , Work: . Sincerely, Kevon Panchal MD 02/03/2023 10:07:38 AM This report has been signed electronically.
--- NOTE | 2023-02-03 10:08 | OP.EGD_ITS ---
Patient Name: Tomas Holly Procedure Date: 02/03/2023 8:37 AM Date of : 1975 Age: 48 Procedure: Upper GI endoscopy Indications: Heartburn Providers: Kevon Panchal MD Referring MD: Joanie Segovia Medicines: See the Anesthesia note for documentation of the administered medications Patient Profile: Refer to note in patient chart for documentation of history and physical. Patient has symptoms of chronic heartburn. Complications: No immediate complications. Estimated blood loss: Minimal. Procedure: Pre-Anesthesia Assessment: - The heart rate, respiratory rate, oxygen saturations, blood pressure, adequacy of pulmonary ventilation, and response to care were monitored throughout the procedure. After obtaining informed consent, the endoscope was passed under direct vision. Throughout the procedure, the patient's blood pressure, pulse, and oxygen saturations were monitored continuously. The Endoscope was introduced through the mouth, and advanced to the second part of duodenum. The upper GI endoscopy was accomplished without difficulty. The patient tolerated the procedure well. Scope In: 8:43:06 AM Scope Out: 9:17:40 AM Total Procedure Duration Time 0 hours 34 minutes 34 seconds Findings: The duodenal bulb, first portion of the duodenum and second portion of the duodenum were normal. No biopsies or other specimens were collected for this exam. Localized mildly erythematous mucosa without bleeding was found in the gastric antrum. Biopsies were taken with a cold forceps for Helicobacter pylori testing. Estimated blood loss was minimal. Two 3 mm mucosal papules (nodules) with no bleeding and no stigmata of recent bleeding were found in the prepyloric region of the stomach. Biopsies were taken with a cold forceps for histology. Estimated blood loss was minimal. Two 3 mm mucosal papules (nodules) with no bleeding and no stigmata of recent bleeding were found in the gastric antrum. Biopsies were taken with a cold forceps for histology. Estimated blood loss was minimal. Multiple 2 to 5 mm pedunculated and sessile polyps with no bleeding and no stigmata of recent bleeding were found on the greater curvature of the stomach. Biopsies were taken with a cold forceps for histology. Estimated blood loss was minimal. The Z-line was irregular and was found 41 cm from the incisors. Biopsies were taken with a cold forceps for histology. Estimated blood loss was minimal. A single 7 mm pedunculated polyp with no bleeding and no stigmata of recent bleeding was found in the cardia. The polyp was removed with a cold snare. Resection and retrieval were complete. Estimated blood loss was minimal. Multiple 3 mm plaques were found in the middle third of the esophagus. Biopsies were taken with a cold forceps for histology. Estimated blood loss was minimal. A few 2 to 5 mm mucosal nodules with a patchy distribution were found in the middle third of the esophagus. Biopsies were taken with a cold forceps for histology. Estimated blood loss was minimal. A medium-sized hiatal hernia was present. No biopsies or other specimens were collected for this exam. Impression: - Normal duodenal bulb, first portion of the duodenum and second portion of the duodenum. No specimens collected. - Erythematous mucosa in the antrum. Biopsied. - Two mucosal papules (nodules) found in the stomach. Biopsied. - Two mucosal papules (nodules) found in the stomach. Biopsied. - Multiple gastric polyps. Biopsied. - Z-line irregular, 41 cm from the incisors. Biopsied. - A single gastric polyp. Resected and retrieved. - Multiple plaques in the middle third of the esophagus. Biopsied. - Mucosal nodule found in the esophagus. Biopsied. - Medium-sized hiatal hernia. No specimens collected. Recommendation: - Discharge patient to home (via wheelchair). - Resume previous diet today. - Use Protonix (pantoprazole) 40 mg PO BID today. - Await pathology results. - Telephone my office for pathology results in 1 week. - Continue present medications. Procedure Code(s): --- Professional --- 19648, Esophagogastroduodenoscopy, flexible, transoral; with removal of tumor(s), polyp(s), or other lesion(s) by snare technique 82161, 59, Esophagogastroduodenoscopy, flexible, transoral; with biopsy, single or multiple Diagnosis Code(s): --- Professional --- K31.89, Other diseases of stomach and duodenum K31.7, Polyp of stomach and duodenum K22.8, Other specified diseases of esophagus K44.9, Diaphragmatic hernia without obstruction or gangrene R12, Heartburn CPT copyright 2017 [employer]. All rights reserved. The codes documented in this report are preliminary and upon pasta maker review may be revised to meet current compliance requirements. Kevon Panchal MD 02/03/2023 10:07:38 AM This report has been signed electronically. Number of Addenda: 0 Note Initiated On: 02/03/2023 8:37 AM
--- NOTE | 2023-02-03 10:15 | OP.CCLET_ITS ---
02/03/2023 Joanie Segovia [address] [place] [address] Re : Colonoscopy procedure for Tomas Holly Dear Dr. Segovia This procedure was performed on January. My impressions and recommendations are as follows: Impressions : - One 10 mm polyp in the proximal sigmoid colon, removed piecemeal using a cold biopsy forceps. Resected and retrieved. - The examination was otherwise normal on direct and retroflexion views. Recommendations : - Discharge patient to home (via wheelchair). - Resume previous diet today. - Continue present medications. - Await pathology results. - Repeat colonoscopy date to be determined after pending pathology results are reviewed for surveillance based on pathology results. - Telephone my office for pathology results in 1 week. My findings are described in the full procedure note, which is enclosed. If I can be of further assistance, please feel free to contact me at Doctor phone number(s): , Work: . Sincerely, Kevon Panchal MD 02/03/2023 10:14:38 AM This report has been signed electronically.
--- NOTE | 2023-02-03 10:15 | OP.COLON_ITS ---
Patient Name: Tomas Holly Procedure Date: 02/03/2023 9:19 AM Date of : 1975 Age: 48 Procedure: Colonoscopy Indications: Screening for colorectal malignant neoplasm Providers: Kevon Panchal MD Referring MD: Joanie Segovia Medicines: See the Anesthesia note for documentation of the administered medications Patient Profile: Refer to note in patient chart for documentation of history and physical. Patient has symptoms of chronic heartburn. Last Colonoscopy: none. The patient's first colonoscopy is today. Complications: No immediate complications. Estimated blood loss: Minimal. Procedure: Pre-Anesthesia Assessment: - The heart rate, respiratory rate, oxygen saturations, blood pressure, adequacy of pulmonary ventilation, and response to care were monitored throughout the procedure. After I obtained informed consent, the scope was passed under direct vision. Throughout the procedure, the patient's blood pressure, pulse, and oxygen saturations were monitored continuously. The colonoscope was introduced through the anus and advanced to the cecum, identified by its appearance. The colonoscopy was performed without difficulty. The patient tolerated the procedure well. The quality of the bowel preparation was good. Scope In: 9:19:57 AM Scope Withdrawal Time 0 hours 25 minutes 36 seconds Scope Out: 9:51:51 AM Total Procedure Duration Time 0 hours 31 minutes 54 seconds Findings: The perianal and digital rectal examinations were normal. A 10 mm polyp was found in the proximal sigmoid colon. The polyp was semi-pedunculated. The polyp was removed with a piecemeal technique using a cold biopsy forceps. Resection and retrieval were complete. Estimated blood loss was minimal. The exam was otherwise without abnormality on direct and retroflexion views. Impression: - One 10 mm polyp in the proximal sigmoid colon, removed piecemeal using a cold biopsy forceps. Resected and retrieved. - The examination was otherwise normal on direct and retroflexion views. Recommendation: - Discharge patient to home (via wheelchair). - Resume previous diet today. - Continue present medications. - Await pathology results. - Repeat colonoscopy date to be determined after pending pathology results are reviewed for surveillance based on pathology results. - Telephone my office for pathology results in 1 week. Procedure Code(s): --- Professional --- 50195, Colonoscopy, flexible; with biopsy, single or multiple Diagnosis Code(s): --- Professional --- Z12.11, Encounter for screening for malignant neoplasm of colon D12.5, Benign neoplasm of sigmoid colon CPT copyright 2017 [employer]. All rights reserved. The codes documented in this report are preliminary and upon food clerk review may be revised to meet current compliance requirements. Kevon Panchal MD 02/03/2023 10:14:38 AM This report has been signed electronically. Number of Addenda: 0 Note Initiated On: 02/03/2023 9:19 AM
== END 2023-02-03 10:48 | disposition home or self-care (01) ==
LOC: EN 07:26 → AC 07:28
PROVIDERS: PCP Family Medicine; Referring Provider Family Medicine; Visit Provider Surgery
PROC: 0DJD8ZZ Inspection of Lower Intestinal Tract, Via Natural or Artificial Opening Endoscopic (ICD-10-PCS; CPT 45378; principal; 2023-02-03 08:25)
DX: Z12.11 Encounter for screening for malignant neoplasm of colon (principal); K44.9 Diaphragmatic hernia without obstruction or gangrene; K31.7 Polyp of stomach and duodenum; R12 Heartburn; K31.89 Other diseases of stomach and duodenum; D12.5 Benign neoplasm of sigmoid colon; K21.00 Gastro-esophageal reflux disease with esophagitis, without bleeding; K29.70 Gastritis, unspecified, without bleeding; E89.0 Postprocedural hypothyroidism; Z79.899 Other long term (current) drug therapy; Z80.0 Family history of malignant neoplasm of digestive organs
CPT/HCPCS: 45380; 43251; 43239; 88305; 88313; 88342; J7120; J2405

== ENCOUNTER → 2023-03-01 | Outpatient (CLI) | payer OTHER, SELFPAY ==
--- NOTE | 2023-03-01 08:10 | RAD_ITS ---
EXAMINATION: Air contrast UPPER GI SERIES INDICATION: Male, 48 years gastroesophageal reflux. FLUOROSCOPY TIME (if supplied): (1:24) minutes/seconds. 62.98 mGy. 17 images were obtained. TECHNIQUE: Radiographic and fluoroscopic images of the distal esophagus, stomach, and proximal small intestine were obtained following the oral ingestion of barium. COMPARISON: None. FINDINGS: There is no evidence for organomegaly, abnormal calcifications, or abnormal bowel gas pattern. The psoas margins and flank stripes are normal. The visualized osseous structures are normal. The mucosa of the esophagus, stomach and duodenum is normal in appearance without evidence for stricture, ulceration, mass or diverticulum. There is evidence of a small sliding hiatal hernia with gastroesophageal reflux. RAD/Upper GI w/BA Swallow IMPRESSION: 1. Small sliding hiatal hernia with gastroesophageal reflux. Electronically Signed: Maninder Wallis MD at 15:16 EDT ,
== END | disposition home or self-care (01) ==
LOC: RAD 07:56
PROVIDERS: PCP Family Medicine; Referring Provider Surgery; Visit Provider Surgery
DX: K44.9 Diaphragmatic hernia without obstruction or gangrene (principal)
CPT/HCPCS: 74246

== ENCOUNTER → 2023-03-04 | Day surgery (SDC) | payer OTHER, SELFPAY ==
[2023-03-04] MEDS: Lidocaine Jelly 2% 20 ML Syringe (URO-JET) 1 APPLIC (07:45)
[2023-03-04 07:50] VITALS: PULSE 82; RESP 15; TEMP 36.3; O2SAT 98
[2023-03-04 08:28] VITALS: BP 142/101
== END | disposition home or self-care (01) ==
PROVIDERS: Surgery; PCP Family Medicine; Referring Provider Surgery; Visit Provider Surgery
PROC: F00ZJWZ Instrumental Swallowing and Oral Function Assessment using Swallowing Equipment (ICD-10-PCS; CPT 43235; principal; 2023-03-04 07:25)
DX: K21.9 Gastro-esophageal reflux disease without esophagitis (principal)
CPT/HCPCS: 91010

== ENCOUNTER → 2023-12-01 | Outpatient (CLI) | payer OTHER, SELFPAY ==
[2023-12-01 09:53] LABS: T4 Free Direct 1.16 ng/dL (0.76-1.46); Thyroid Stim Hormone (TSH) 1.06 uIU/mL (0.358-3.74)
== END | disposition home or self-care (01) ==
LOC: LAB 08:11
PROVIDERS: PCP Family Medicine; Referring Provider Internal Medicine Endocrinology, Diabetes & Metabolism; Visit Provider Internal Medicine Endocrinology, Diabetes & Metabolism
DX: E89.0 Postprocedural hypothyroidism (principal)
CPT/HCPCS: 36415; 84439; 84443

== ENCOUNTER → 2024-10-10 | Outpatient (CLI) | payer OTHER, SELFPAY ==
[2024-10-10 10:38] LABS: ALB/GLOB Ratio 1.5 RATIO (0.9-2.4); AST(SGOT) 24 U/L (<=37); Alanine Aminotransfer ALT/SGPT 27 U/L (<=46); Albumin, Serum 4.3 g/dL (3.5-5.0); Alkaline Phosphatase 81 U/L (40-129); Anion Gap 10 (5-15); BUN 15 mg/dL (4-19); BUN/Creat Ratio 16.6 RATIO (10-20); Calcium,Total 9.3 mg/dL (7.6-11.0); Carbon Dioxide 25.1 mmol/L (21.0-32.0); Chloride 104 mmol/L (98-108); Cholesterol 209 mg/dL (<=200); Creatinine, Serum 0.91 mg/dL (0.70-1.20); EST Glomerular Filtration Rate 102 (>60); Globulin 2.9 g/dL (2.2-4.2); Glucose 107 mg/dL (70-99); High Density Lipoprotein 51 mg/dL; Low Density Lipoprotein Calc. 141 mg/dL; Potassium 4.3 mmol/L (3.3-5.1); Protein, Total 7.1 g/dL (5.9-8.4); Sodium Level 140 mmol/L (133-145); Total Bilirubin 0.51 mg/dL (0.00-1.30); Triglycerides 89 mg/dL; Very Low Density Lipoprotein 18 mg/dL (5-40); cholesterol:hdl ratio screen 4.13
== END | disposition home or self-care (01) ==
LOC: LAB 09:03
PROVIDERS: PCP Family Medicine; Referring Provider Internal Medicine Endocrinology, Diabetes & Metabolism; Visit Provider Internal Medicine Endocrinology, Diabetes & Metabolism
DX: E89.0 Postprocedural hypothyroidism (principal)
CPT/HCPCS: 36415; 80053; 80061; 84439; 84443